=== PATIENT | male | born 1970 | race Two or more races ===

== ENCOUNTER 2025-01-22 12:21 | Emergency (ER) | payer OTHER ==
[~2025-01-22] VITALS: Ht 172.7 cm; Wt 106.3 kg
[2025-01-22 13:01] LABS: Urine Bacteria None Seen /hpf (None Seen)
[2025-01-22 13:09] LABS: Urine Blood Negative /uL (Negative); Urine Clarity Clear (Clear); Urine Color Yellow (Yellow); Urine Protein, UAD Negative (Negative); Urine Specific Gravity 1.027 (1.001-1.035); Urine Squamous Epithelial Cell None Seen /hpf (<5); Urine Urobilinogen Normal (Negative); Urine WBC 1 /HPF (0-3); Urine pH 5.5 (5.0-9.0)
[2025-01-22 13:50] VITALS: BP 112/70; PULSE 92; RESP 16; TEMP 98.6; O2SAT 97
--- NOTE | 2025-01-22 15:07 | DVH ---
Procedure: US TESTICULAR ULTRASOUND Study Date and Requested Time: 01/22/2025 01:35 PM History: LEFT TESTICLE PAIN Comparison: None Technique: Multiple high-resolution grayscale images of scrotal contents obtained. Color and spectral Doppler used for evaluation of testicular blood flow. Findings: Right testicle measures 4.3 x 2.4 x 2.5 cm with homogenous echotexture and normal contours. Right epi didymal head measures 1.4 x 1 x 0.9 cm and is within normal limits. Left testicle measures 4.2 x 2 x 2.7 cm with homogenous echotexture and normal contours. Left epididy mal head measures 1.5 x 1 x 0.8 cm and is within normal limits. Normal testicular color and spectral Doppler flow bilaterally. No evidence of testicular torsion. Tr robert right-sided hydrocele. Moderate left-sided hydrocele. Left-sided varicocele. Impression: No evidence of testicular torsion or mass. Trace right and moderate left-sided hydroceles. Left-sided varicocele.
--- NOTE | 2025-01-22 15:18 | ED.PDOC ---
General HPI Comments A 55 YEAR OLD MALE PRESENTS TO THE ED WITH CHIEF COMPLAINT OF TESTICULAR PAIN.THE PATIENT REPORTS THAT HE HAS BEEN EXPERIENCING LEFT TESTICULAR PAIN FOR THE PAST 4 DAYS ALONG WITH ASSOCIATED SWELLING. PATIENT RELAYS THAT THE SWELLING HAS WORSENED OVER THE PAST WEEK WITH SITTING AND MOVEMENT AGGRAVATING PAIN. PATIENT DENIES ANY DYSURIA, HEMATURIA, OR ABDOMINAL PAIN. NO OTHER SYMPTOMS REPORTED AT THIS TIME OF CARE. Chief Complaint: Testicle Pain Time Seen by MD: 15:10 Primary Care Provider: SHAYY Jones notes: Nurses Notes, Medications, Allergies Allergies: Coded Allergies: NO KNOWN ALLERGIES (Unverified , 01/22/25) Information Source: Patient Mode of Arrival: Ambulatory Severity: Moderate Inability to void: None Timing: Hours Duration: Since onset Prehospital treatment: None Symptoms: Dysuria History of: None Location: None Location male: L Scrotum Penile discharge: None Modifying factors: None associated signs and symptoms: Urgency Past Medical History PAST MEDICAL HISTORY: Denies Past Medical History (Other): LEFT INGUINAL HERNIA Surgical History: Denies all surgeries Family History Family History: Reviewed,noncontributory to illness Social History Smoker: Non-Smoker Alcohol: Denies ETOH Use Drugs: Denies Drug Use Lives In: Home Constitutional: denies: chills, diaphoresis, fatigue, fever, malaise, sweats, weakness, others EENTM: denies: blurred vision, double vision, ear bleeding, ear discharge, ear drainage, ear pain, ear ringing, eye pain, eye redness, hearing loss, mouth pain, mouth swelling, nasal discharge, nose bleeding, nose congestion, nose pain, photophobia, tearing, throat pain, throat swelling, voice changes, others Respiratory: denies: cough, hemoptysis, orthopnea, SOB at rest, shortness of breath, SOB with excertion, stridor, wheezing, others Cardiovascular: denies: chest pain, dizzy spells, diaphoresis, Dyspnea on exertion, edema, irregular heart beat, left arm pain, lightheadedness, palpitations, PND, syncope, others Gastrointestinal: denies: abdomen distended, abdominal pain, blood streaked bowels, constipated, diarrhea, dysphagia, difficulty swallowing, hematemesis, melena, nausea, poor appetite, poor fluid intake, rectal bleeding, rectal pain, vomiting, others Genitourinary: reports: testicle pain, testicle swelling; denies: burning, dysuria, flank pain, frequency, hematuria, incontinence, penile discharge, penile sore, pain, urgency, others Neurological: denies: dizziness, fainting, headache, left sided numbness, left sided weakness, numbness, paresthesia, pre-existing deficit, right sided numbness, right sided weakness, seizure, speech problems, tingling, tremors, weakness, others Musculoskeletal: denies: back pain, gout, joint pain, joint swelling, muscle pain, muscle stiffness, neck pain, others Integumetry: denies: bruises, change in color, change in hair/nails, dryness, laceration, lesions, lumps, rash, wounds, others Allergic/Immunocompromised: denies: Difficulty Healing, Frequent Infections, Hives, Itching, others Hematologic/Lymphatic: denies: anemia, blood clots, easy bleeding, easy bruising, swollen glands, others Endocrine: denies: excessive hunger, excessive sweating, excessive thirst, excessive urination, flushing, intolerance to cold, intolerance to heat, unexplained weight gain, unexplained weight loss, others Psychiatric: denies: anxiety, bipolar disorder, depression, hopeless, panic disorder, schizophrenia, sleepless, suicidal, others All Other Systems: Reviewed and Negative Physical Exam General Appearance: No Apparent Distress, Normal HEENT: Normal ENT Inspection, PERRL/EOMI, Pharynx Normal Neck: Full Range of Motion, Non-Tender, Normal, Normal Inspection Respiratory: Chest Non-Tender, Lungs Clear, No Accessory Muscle Use, No Re spiratory Distress, Normal Breath Sounds Cardiovascular: No Edema, No JVD, No Murmur, No Gallop, Normal Peripheral Pulses, Regular Rate/Rhythm Breast Exam: Deferred Gastrointestinal: No Organomegaly, Non Tender, No Pulsatile Mass, Normal Bowel Sounds, Soft Genitalia: Epididymis, Scrotum (TENDER AND MILD SWELLING ON LEFT SCROTUM. ), Testicle (TENDERNESS ONLEFT TESTICLE, NO TESTICLE TORSION, BILATERAL TESTICLE DESCENDING. TENDERNESS ON LEFT EPIDIDYMAL. ) Pelvic: Deferred Rectal: Deferred Extremities: No calf tenderness, Normal capillary refill, Normal inspection, Normal range of motion, Non-tender, No pedal edema Musculoskeletal : Apperance: Normal Neurologic: Alert, wide area network administrator II-XII nml as Tested, No Motor Deficits, Normal Affect, Normal Mood, No Sensory Deficits Cerebellar Function: Normal Reflexes: Normal Skin: Dry, Normal Color, Warm Peripheral Pulses: 2+ carotid (R), 2+ carotid (L) Lymphatic: No Adenopathy Was a procedure done? Was a procedure done?: No Differential Diagnosis Kidney stone (Female): N/A Kidney stone (Male): N/A Penile/Scrotal: Epidiymitis, UTI, Hydrocele, Testicular Torsion, Urolithiasis X-Ray, Labs, Meds, VS Vital Signs Date Time Temp Pulse Resp B/P (MAP) Pulse Ox O2 Delivery O2 Flow Rate FiO2 01/22/25 13:50 92 16 97 Room Air 01/22/25 13:50 98.6 92 16 112/70 (84) 97 98.6 01/22/25 12:38 98.7 89 18 108/58 (75) 96 98.7 Lab Test 01/22/25 12:50 Range/Units Urine Color Yellow Yellow Urine Clarity Clear Clear Urine pH 5.5 5.0-9.0 Urine Specific [place] 1.027 1.001-1.035 Urine Protein Negative Negative Urine Ketones Negative Negative Urine Blood Negative Negative /uL Urine Nitrite Negative Negative Urine Bilirubin Negative Negative Urine Urobilinogen Normal Negative mg/dL Urine Leukocyte Esterase Negative Negative /uL Urine RBC 1 0 - 3 /hpf Urine Microscopic WBC 1 0-3 /HPF Urine Squamous Epithelial Cells None seen <5 /hpf Urine Bacteria None seen None Seen /hpf Urine Glucose Normal Normal mg/dL TESTICULAR US: Findings: Right testicle measures 4.3 x 2.4 x 2.5 cm with homogenous echotexture and normal contours. Right epididymal head measures 1.4 x 1 x 0.9 cm and is within normal limits. Left testicle measures 4.2 x 2 x 2.7 cm with homogenous echotexture and normal contours. Left epididymal head measures 1.5 x 1 x 0.8 cm and is within normal limits. Normal testicular color and spectral Doppler flow bilaterally. No evidence of testicular torsion. Trace right-sided hydrocele. Moderate left-sided hydrocele. Left-sided varicocele. Impression: No evidence of testicular torsion or mass. Trace right and moderate left-sided hydroceles. Left-sided varicocele. X-Ray, Labs, Meds, VS Comment EXTERNAL MEDICAL RECORDS REVIEWED: [NONE] INDEPENDENT HISTORIANS: [NONE] SOCIAL DETERMINANTS OF HEALTH: [NONE] LABS ORDERED: UA REVIEWED AND INTERPRETED RESULTS: TESTICULAR US IMAGING ORDERED: TESTICULAR US PROCEDURES PERFORMED: NONE CRITICAL CARE TIME: NONE I HAVE DISCUSSED THE PATIENT WITH THE ATTENDING PHYSICIAN DR. FIELDS AND HE AGREES WITH THE PATIENT'S PLAN OF CARE AND DISPOSITION. BASED ON HISTORY OF PRESENT ILLNESS, AND PHYSICAL EXAM, PATIENT WILL BE DISCHARGED HOME. DISCUSSED PLAN FOR DISCHARGE HOME WITH RX []. MEDICATION WARNINGS GIVEN. SHARED DECISION MAKING: DISCUSSED WITH PATIENT THAT THEIR WORKUP WAS NORMAL. PATIENT INSTRUCTED TO FOLLOW UP WITH PRIMARY CARE PROVIDER IN 1-2 DAYS FOR RE- EVALUATION OF SYMPTOMS. PATIENT VERBALIZES UNDERSTANDING TO RETURN TO ED FOR NEW OR WORSENING SYMPTOMS OR IF FOLLOW UP WITH PCP CANNOT BE OBTAINED. PATIENT FEELS COMFORTABLE GOING HOME AT THIS TIME. ALL QUESTIONS ADDRESSED AT TIME OF DISCHARGE. Time of 1ST Reevaluation: 15:29 Reevaluation 1ST: Improved Patient Education/Counseling: Diagnosis, Treatment, Need For Follow Up Family Education/Counseling: Diagnosis, Treatment, Need For Follow Up Medical Screening: No EMC Exist At This Time Departure 1 Departure Time of Disposition: 15:09 Impression: Primary Impression: Epididymitis Additional Impressions: Hydrocele Qualified Codes: N43.3 - Hydrocele, unspecified Varicocele Disposition: HOME / SELF CARE / HOMELESS Condition: Stable Additional Instructions: FOLLOW-UP WITH PCP IN 1 TO 2 DAYS. TAKE MEDICATIONS PRESCRIBED. RETURN TO ED FOR ANY NEW OR WORSENING SYMPTOMS. e-Prescriptions Indomethacin (Indomethacin) 50 Mg Cap 50 MG PO TID, #30 CAP Prov: EDMUNDO GOMEZ 01/22/25 Ciprofloxacin Hcl (Cipro) 500 Mg Tab 1 TAB PO BID, #20 TAB Prov: EDMUNDO GOMEZ 01/22/25 Discharged With: Self, Spouse Critical Care Note Critical Care Time?: No Stability Stability form required: No I personally scribed for EDMUNDO GOMEZ ([email or web address]) on 01/22/25 at 15:18. Electronically submitted by Marek Mckay ([email or web address]). EDMUNDO GOMEZ January 22, 2025 15:18
[2025-01-22] MEDS ORDERED: INDO50CA82 PO (15:31)
[2025-01-22] MEDS ORDERED: CIPR-173 PO (15:31)
== END 2025-01-22 15:41 | disposition home or self-care (01) ==
LOC: ER 12:28
DX: N45.1 Epididymitis (principal); N43.3 Hydrocele, unspecified; I86.1 Scrotal varices; Z98.890 Other specified postprocedural states
CPT/HCPCS: 76870; 81001